=== PATIENT | female | born 1945 | race Caucasian/White ===

== ENCOUNTER 2018-10-25 10:50 | Inpatient (IN) | payer MEDICARE, OTHER ==
[~2018-10-25] VITALS: Ht 160 cm; Wt 67.7 kg
[~2018-10-25 10:50] MED LIST: ALEN70 PO; CALCIT950; CARV6.25 PO; CELE200 PO; CONEST.625 PO; ENOX30I SC; Elemental Calc600 MG PO; FOLI1 PO; FURO40 PO; HYDACE10B PO; HYDMOR4 PO; HYDSUL200 PO; METTREX2.5 PO; Micro-K10 MEQ PO; NEBI10 PO; NITR.6SL; OMEP20ER PO; ONE DAILY COMP1 EACH PO; PRAM.125 PO; PRED5 PO; Percocet 10-321 EACH PO; Pravastatin Sod40 MG PO; Prilosec Otc20 MG PO; SPIR25 PO; Super B Comple150 MG PO; TOCO400 PO; XELJANZ5 MG PO
[2018-10-25] MEDS ORDERED: POTCHL20ER PO (12:08)
[2018-10-25 12:23] LABS: BASOPHILS ABSOLUTE AUTO 0.01 K/mm3 (0.00-0.23); BASOPHILS PERCENT AUTO 0 % (0-2); EOSINOPHILS ABSOLUTE AUTO 0.14 K/mm3 (0.00-0.68); EOSINOPHILS PERCENT AUTO 2 % (0-6); Hematocrit 38.3 % (33.0-51.0); Hemoglobin 12.8 g/dL (11.5-16.0); IMMATURE GRAN ABSOLUTE AUTO 0.05 K/mm3 (0.00-0.10); IMMATURE GRAN PERCENT AUTO 1 % (0-1); LYMPHOCYTES ABSOLUTE AUTO 0.13 K/mm3 (0.84-5.20); LYMPHOCYTES PERCENT AUTO 2 % (21-46); MONOCYTES ABSOLUTE AUTO 0.51 K/mm3 (0.16-1.47); MONOCYTES PERCENT AUTO 6 % (4-13); Mean Corpuscular HGB 32.4 pg (26.0-34.0); Mean Corpuscular HGB Conc 33.4 g/dL (31.5-36.5); Mean Corpuscular Volume 97 fL (80-100); Mean Platelet Volume 10.4 fL (9.1-12.4); NEUTROPHILS ABSOLUTE AUTO 8.06 K/mm3 (1.96-9.15); NEUTROPHILS PERCENT AUTO 91 % (41-73); Platelet Count 194 K/mm3 (150-400); RDW Coefficient Variation 15.1 % (11.7-14.2); RDW Standard Deviation 53.1 fL (35.1-46.3); Red Blood Cell Count 3.95 M/mm3 (3.80-5.20)
[2018-10-25 13:06] LABS: Ethanol (Alcohol), Blood, Med <3 mg/dL
[2018-10-25 13:08] LABS: Alanine Aminotransfer (ALT/SGP 38 U/L (12-78); Albumin, Blood 3.5 g/dL (3.4-5.0); Albumin/Globulin Ratio 1.2 (0.8-1.8); Alk Phos 78 U/L (50-136); Anion Gap 7 mmol/L (6-16); Aspartate Aminotrans (AST/SGOT 47 U/L (12-37); Bilirubin, Total 0.6 mg/dL (0.1-1.0); Blood Urea Nitrogen 72 mg/dL (8-24); Bun/Creatinine Ratio 23.5 (12.0-20.0); CO2, Blood 33 mmol/L (21-32); Calcium, Blood 15.4 mg/dL (8.5-10.1); Chloride, Blood 95 mmol/L (98-108); Creatinine, Blood 3.07 mg/dL (0.40-1.00); Glomerular Filtration Rate 16 (60-); Glucose, Blood 93 mg/dL (70-99); Potassium, Blood 3.8 mmol/L (3.5-5.5); Sodium, Blood 135 mmol/L (136-145); Total Protein, Blood 6.5 g/dL (6.4-8.2)
[2018-10-25 13:20] LABS: U Amphetamine Screen Not Detected; U Barbituate Screen Not Detected; U Benzodiazapine Screen Not Detected; U Buprenorphine Screen Not Detected; U Cannabinoids Screen Not Detected; U Cocaine Screen Not Detected; U Methadone Screen Not Detected; U Methamphetamine Screen Not Detected; U Opiates Screen Not Detected; U Oxycodone Screen Not Detected; U Phencyclidine Screen Not Detected; U Propoxyphene Screen Not Detected
[2018-10-25] MEDS ORDERED: Mirapex0.25 MG PO (14:08)
[2018-10-25] MEDS ORDERED: XELJANZ XR11 MG PO (14:09)
[2018-10-25] MEDS ORDERED: LO-DOSE ASPIRIN81 MG PO (14:10)
[2018-10-25] MEDS ORDERED: VITAMIN B-125000 MC2 PO (14:11)
[2018-10-25] MEDS ORDERED: C Complex1000 MG PO (14:11)
[2018-10-25] MEDS ORDERED: PYRI100 PO (14:12)
[2018-10-25] MEDS ORDERED: VITAMIN D5000 UNIT PO (14:12)
[2018-10-25] MEDS ORDERED: Magnesium500 M1 PO (14:12)
[2018-10-25 15:45] LABS: Appearance, Urine Clear (Clear); Bilirubin, Urine Neg (Neg); Blood, Urine 1+ (Neg); Color, Urine Yellow (P-Yellow); Glucose Qualitative, Urine Neg (Neg); Ketones, Urine Neg (Neg); Leukocyte Esterase, Urine Neg (Neg); Nitrite, Urine Neg (Neg); Protein, Urine Neg (Neg); Urobilinogen, Urine NORM (Normal)
[2018-10-25 16:11] LABS: Squamous Epithelial Cells Few /hpf (Few)
[2018-10-25 16:12] LABS: Bacteria Rare /hpf; Red Blood Cells, Urine 0-2 /hpf (0-2); White Blood Cells, Urine 0-2 /hpf (0-5)
--- NOTE | 2018-10-25 17:15 | NUR ---
NOTIFIED DR. AWAN PT'S HR 56 AND THERE ARE NO PARAMETERS FOR PO COREG. DR. AWAN SAID TO HOLD COREG IF HR BELOW 45. NO OTHER NEW ORDERS AT THIS TIME.
--- NOTE | 2018-10-25 19:30 | NUR ---
SHIFT SUMMARY- PT NEW ADMIT THIS PM. PT AXO X4. PT DENIES PAIN. DENIES SOB. RESP E/U ON RA. DENIES N/V. 1 ASSIST WITH FWW TO THE BATHROOM. NO OTHER SIGNIFICANT CHANGES THIS SHIFT.
--- NOTE | 2018-10-26 04:44 | NUR ---
SHIFT SUMMARY NO ACUTE CHANGES TO PRESENT THIS SHIFT. PT RESTED QUIETLY THRU OUT THE SHIFT. CALLS FAIRLY FREQUENTLY TO GO TO [facility]. WEAK AND UNSTEADY; SBA WITH FWW AND ASSIST WITH IV PUMP. PT SEEMED TO BE ORIENTED TONIGHT. BED ALARM ON FOR SAFETY. SHINGLE ON INNER LLE WITH SCABS, HEALING. SHINGLES ON LUE VERY DEEP CRACKED SCABS; APPEAR TO BE HEALING WELL, BUT HAVE FARTHER TO GO IN ORDER TO BE HEALED. CALL LT IN REACH. NO C/O.
[2018-10-26 06:02] LABS: Creatinine, Blood 2.68 mg/dL (0.40-1.00); Potassium, Blood 3.8 mmol/L (3.5-5.5)
[2018-10-26 06:04] LABS: Calcium, Blood 13.2 mg/dL (8.5-10.1)
--- NOTE | 2018-10-26 17:23 | NUR ---
NO ACUTE CHANGES TO PATIENT. HER MENTATION CONTINUES TO IMPROVE. AT BEDSIDE THROUGH OUT THE SHIFT. CALL LIGHT WITHIN REACH.
--- NOTE | 2018-10-27 05:11 | NUR ---
SHIFT SUMMARY PATIENT IS ALERT TO SELF AND PLACE, SOMETIMES FORGETFUL. PATIENT GETS OUT OF BED WITHOUT USING CALL LIGHT FOR HELP. BED ALARM HAS BEEN ON THROUGHOUT THE NIGHT. NO COMPLAINTS OF PAIN, ON ROOM AIR. VITALS WNL. NO NEW CHANGES
[2018-10-27 11:11] LABS: Bun/Creatinine Ratio 26.5 (12.0-20.0); Creatinine, Blood 2.26 mg/dL (0.40-1.00); Potassium, Blood 3.3 mmol/L (3.5-5.5)
[2018-10-27 11:24] LABS: Calcium, Blood 10.8 mg/dL (8.5-10.1)
--- NOTE | 2018-10-27 17:17 | NUR ---
PT IS ALERT AND ORIENTED AND COOPERATIVE WITH CARE. HER HAS BEEN AT THE BEDSIDE ON AND OFF TODAY. THE PT WAS ENCOURAGED BY DR. AWAN TO AMBULATE IN THE HALLS TODAY. SHE HAS BEEN WALKING IN THE HALLS WITH STAFF THREE TIMES TODAY. SHE HAS A GOOD APPETITE. SHE IS UP TO THE RECLINER FOR ALL MEALS. NO COMPLAINTS OF PAIN. WILL CONTINUE TO MONITOR.
--- NOTE | 2018-10-28 05:33 | NUR ---
SHIFT SUMMARY PT SLEPT WELL T/O NIGHT. NO ACUTE CHANGES THIS SHIFT. AOX3, KNEW SHE WAS IN [place] BUT COULD NOT STATE WHAT BUILDING SHE WAS IN OR WHO THE PRESIDENT WAS, REPORTS SHE IS FORGETFUL @TIMES. VSS. DENIES PAIN, NAUSEA OR SOB. HAS STEADY GAIT W/FWW & IS INDEPENDENT IN ROOM. CALL LIGHT IS IN REACH.
[2018-10-28 05:59] LABS: Bun/Creatinine Ratio 25.8 (12.0-20.0); Calcium, Blood 10.6 mg/dL (8.5-10.1); Creatinine, Blood 2.17 mg/dL (0.40-1.00); Potassium, Blood 3.8 mmol/L (3.5-5.5)
--- NOTE | 2018-10-28 19:14 | NUR ---
PATIENT IS ALERT AND ORIENTED AND COOPERATIVE WITH CARE. NO COMPLAINTS OF PAIN. AMBULATING OFTEN. INDEPENDENT TO THE BATHROOM.
--- NOTE | 2018-10-29 04:56 | NUR ---
NOC SHIFT SUMMARY PT IS PLEASANT AND COOPERATIVE WITH CARE. AAO. RESP EVEN AND UNLABORED. VSS. SHE DID COMPLAIN OF A SORE THROAT WHICH SHE SAYS HAS BEEN GOING ON FOR PAST 3 DAYS. TREATED WITH TYLENOL AND CALLED HOSPITALIST FOR THROAT LOSSENGES PER PT REQUEST. PT HAS HAD NO OTHER PROBLEMS/ISSUE/REQUESTS THIS NIGHT. CURRENTLY ON HER CELL PHONE AND APPEARS IN NO ACUTE DISTRESS. WILL CONTINUE TO MONITOR.
[2018-10-29 05:54] LABS: Bun/Creatinine Ratio 24.4 (12.0-20.0); Calcium, Blood 10.7 mg/dL (8.5-10.1); Creatinine, Blood 1.97 mg/dL (0.40-1.00); Potassium, Blood 3.8 mmol/L (3.5-5.5)
--- NOTE | 2018-10-29 15:36 | NUR ---
PT DC'D 1230 WITH DC INSTRUCTIONS. PT FEELS GOOD, GOOD STRENGTH, AMBULATING INDEPENDANT IN ROOM, A/O X3, FEELS READY TO GO HOME. SENT WITH BELONGINGS. W/C ESCORT OUT TO CAR, TO DRIVE HOME.
== END 2018-10-29 12:30 | disposition home or self-care (01) | DRG 641 ==
LOC: ER 10:50 → ERHOLD 14:07 → MEDS 15:23 → ENPENDDIS 10-29 11:26 → MEDS 10-29 12:30
PROVIDERS: Emergency Medicine; ADMIT Hospitalist
DX: E83.52 Hypercalcemia (principal); N17.9 Acute kidney failure, unspecified; I10 Essential (primary) hypertension; M06.9 Rheumatoid arthritis, unspecified; G89.29 Other chronic pain; E78.5 Hyperlipidemia, unspecified; K21.9 Gastro-esophageal reflux disease without esophagitis
CPT/HCPCS: 36415; 70450; 71045; 71250; 74176; 80048; 80053; 81001; 81050; 82140; 82306; 83970; 84443; 85025; 93005; 93010; 96360; 96361; 99285-25; G0480; J1650; J1940; J3480; J3489; J7030; J8610

== ENCOUNTER 2018-11-02 08:31 | Emergency (ER) | payer MEDICARE, OTHER ==
[~2018-11-02 08:31] MED LIST changes: +C Complex1000 MG PO; +LO-DOSE ASPIRIN81 MG PO; +Magnesium500 M1 PO; +Mirapex0.25 MG PO; +NYST237S MT; +POTCHL20ER PO; +PYRI100 PO; +VITAMIN B-125000 MC2 PO; +VITAMIN D5000 UNIT PO; +XELJANZ XR11 MG PO
== END 2018-11-02 09:38 | disposition left against medical advice (07) ==
LOC: ER 08:31
DX: Z53.21 Procedure and treatment not carried out due to patient leaving prior to being seen by health care provider (principal)